=== PATIENT | male | born 1965 | race Caucasian/White ===

== ENCOUNTER 2019-10-24 13:36 | Emergency (ER) | payer SELFPAY ==
[~2019-10-24] VITALS: Ht 180.3 cm; Wt 81.6 kg
[2019-10-24 13:36] VITALS: BP 137/69
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
[2019-10-24] MEDS ORDERED: KETOROLAC 60 MG/2 ML VIAL IM ONE (14:10)
[2019-10-24] MEDS ORDERED: ACETAMINOPHEN 325 MG TAB PO ONE (14:55)
[2019-10-24] MEDS ORDERED: IBUPROFEN 800 MG TAB PO ONE (14:55)
--- NOTE | 2019-10-24 15:15 | NUR ---
PATIENT IN BED WITH EYES CLOSED, BREATHING EVEN AND UNLABORED, WILL CONTINUE TO MONITOR.
[2019-10-24 15:43] VITALS: BP 170/102
--- NOTE | 2019-10-24 15:43 | NUR ---
Patient given written and verbal discharge instructions ABOUT RIB FRACTURE and verbalizes understanding, patient refused to sign discharge paperwork. Patient states he demands a "back brace" and that he "cannot walk." INDER [employer]EZ notified. Patient is awake, alert and oriented. Refuses offer of jail placement. Given list of available shelters in surrounding areas. Patient given [place]witch. Patient denied bus ticket. Addendum: 10/24/19 at 1637 by [email or web address] PATIENT GIVEN PRESCRIPTION FOR IBUPROFEN AND VOLTAREN, VERBALIZED UNDERSTANDING OF SIDE EFFECTS
--- NOTE | 2019-10-24 15:45 | NUR ---
PATIENT REFUSING TO LEAVE, [employer] INSPECTOR SCOTTY NOTIFIED
--- NOTE | 2019-10-24 15:50 | NUR ---
PT REFUSING TO LEAVE. SECURITY CALLED.
--- NOTE | 2019-10-24 15:53 | NUR ---
SECURITY AT BEDSIDE, STATED "IM NOT GOING ANYWHERE" NOHEMY VICENTE CALLED. OFFICERS ENROUTE.
--- NOTE | 2019-10-24 16:25 | NUR ---
PATIENT AMBULATED WITH PD OUTSIDE OF ER ROOM
== END 2019-10-24 16:25 | disposition home or self-care (01) ==
LOC: MED 13:36
DX: S22.31XA Fracture of one rib, right side, initial encounter for closed fracture (principal); F17.210 Nicotine dependence, cigarettes, uncomplicated; F12.10 Cannabis abuse, uncomplicated; W19.XXXA Unspecified fall, initial encounter; Y93.89 Activity, other specified; Y92.89 Other specified places as the place of occurrence of the external cause; Y99.8 Other external cause status
CPT/HCPCS: 71101; 99283; J1885

== ENCOUNTER 2021-11-12 12:32 | Emergency (ER) | payer MEDICAID, SELFPAY ==
[~2021-11-12] VITALS: Ht 180.3 cm; Wt 86.2 kg
[2021-11-12 12:49] VITALS: BP 112/82
[2021-11-12] MEDS ORDERED: LEVO750T51 PO (14:02)
--- NOTE | 2021-11-12 14:08 | NUR ---
COVID SWAB SENT TO LAB
--- NOTE | 2021-11-12 14:09 | NUR ---
NO NUSNG CARE GIVEN-Patient discharged with v/s stable. Written and verbal after care instructions given and explained. Patient alert, oriented and verbalized understanding of instructions. Ambulatory with steady gait. All questions addressed prior to discharge. ID band removed. Patient advised to follow up with PMD. Rx of LEVOFLOXACIN given. Patient educated on indication of medication including possible reaction and side effects. Opportunity to ask questions provided and answered.
[2021-11-12] MEDS: KETOROLAC 30 MG/ML VIAL IM ONE (14:27)
== END 2021-11-12 14:23 | disposition home or self-care (01) ==
LOC: MED 12:32
DX: U07.1 COVID-19 (principal); F17.210 Nicotine dependence, cigarettes, uncomplicated; Z88.0 Allergy status to penicillin; Z88.8 Allergy status to other drugs, medicaments and biological substances
CPT/HCPCS: 71045; 99284; Q0092; U0003

== ENCOUNTER 2024-07-31 17:48 | Emergency (ER) | payer MEDICAID, OTHER ==
[~2024-07-31] VITALS: Ht 180.3 cm; Wt 78.0 kg
[~2024-07-31 17:48] MED LIST: ACET500T99 PO; CYCL-711 PO; IBUP-2213 PO; LEVO750T75 PO
[2024-07-31 18:18] VITALS: BP 110/80; PULSE 91; RESP 18; TEMP 98.2; O2SAT 97
== END 2024-07-31 19:54 | disposition left against medical advice (07) ==
LOC: MED 17:48
DX: M54.2 Cervicalgia (principal); M54.50 Low back pain, unspecified; M25.552 Pain in left hip; Z53.21 Procedure and treatment not carried out due to patient leaving prior to being seen by health care provider